=== PATIENT | female | born 1970 | race Caucasian/White ===

== ENCOUNTER 2017-09-02 21:30 | Observation (INO) | payer SELFPAY ==
[~2017-09-02] VITALS: Ht 165.1 cm; Wt 105.2 kg
[2017-09-02 21:50] LABS: BASOPHILS # (AUTO) 0.1 10^3/uL (0.0-0.1); BASOPHILS % (AUTO) 0 % (0-10); EOSINOPHILS # (AUTO) 0.2 10^3/uL (0.0-0.3); EOSINOPHILS % (AUTO) 1 % (0-10); HEMATOCRIT 48 % (35-52); LYMPHOCYTES # (AUTO) 4.9 X 10^3 (1.0-4.0); LYMPHOCYTES % (AUTO) 28 % (12-44); MEAN CORPUSCULAR HEMOGLOBIN 32 PG (25-34); MEAN CORPUSCULAR HGB CONC 35 G/DL (32-36); MEAN CORPUSCULAR VOLUME 89 FL (80-99); MEAN PLATELET VOLUME 10.5 FL (7.4-10.4); MONOCYTES # (AUTO) 1.1 X 10^3 (0.0-1.0); MONOCYTES % (AUTO) 6 % (0-12); NEUTROPHILS # (AUTO) 11.8 X 10^3 (1.8-7.8); NEUTROPHILS % (AUTO) 65 % (42-75); PLATELET COUNT 287 10^3/uL (130-400); RED BLOOD COUNT 5.38 10^6/uL (4.35-5.85)
[2017-09-02] MEDS ORDERED: ASPIRIN 81 MG CHEW (CHILDREN'S ASA) PO ONE (22:00)
[2017-09-02 22:03] LABS: INR 0.9 (0.8-1.4); PROTHROMBIN TIME PATIENT 12.5 SEC (12.2-14.7)
[2017-09-02 22:14] LABS: ALANINE AMINOTRANSFERASE 22 U/L (0-55); ALBUMIN 4.2 GM/DL (3.2-4.5); ALKALINE PHOSPHATASE 107 U/L (40-136); AMYLASE 28 U/L (25-125); BILIRUBIN,TOTAL 0.2 MG/DL (0.1-1.0); BUN/CREATININE RATIO 9; CALCIUM 9.6 MG/DL (8.5-10.1); CARBON DIOXIDE 19 MMOL/L (21-32); CHLORIDE 104 MMOL/L (98-107); CREATINE KINASE 42 U/L (29-168); CREATININE SERUM 0.79 MG/DL (0.60-1.30); GFR ESTIMATED > 60; GLUCOSE 304 MG/DL (70-105); LIPASE 17 U/L (8-78); POTASSIUM 3.9 MMOL/L (3.6-5.0); SODIUM 136 MMOL/L (135-145); TOTAL PROTEIN 7.5 GM/DL (6.4-8.2)
[2017-09-02 22:25] LABS: CREATINE KINASE MB 0.5 NG/ML (<6.6)
[2017-09-02 22:29] LABS: BAND NEUTROPHILS 0 %; BASOPHILS % (MANUAL) 0 %; EOSINOPHILS % (MANUAL) 0 %; LYMPHOCYTES % (MANUAL) 36 %; MONOCYTES % (MANUAL) 5 %; NEUTROPHILS % (MANUAL) 59 %; RBC MORPH NORMAL
[2017-09-02] MEDS ORDERED: IOHEXOL 350 MG/ML 150 ML (OMNIPAQUE 350) VIAL IV ONE (23:30)
[2017-09-02] MEDS ORDERED: NS 250 ML (IVPB) BAG IV ONE (23:30)
[2017-09-03] VITALS (11 sets, daily range): BP systolic 124–177; BP diastolic 70–98
--- NOTE | 2017-09-03 00:51 | ED Chest Pain ---
General Chief Complaint: Chest Pain Stated Complaint: CP Nursing Triage Note: PT TO ED 10 W/ C/O CHEST PAIN ONSET 1529 TODAY WHILE WALKING THROUGH THE "PLANT". PT REPORTS PAIN IS INTERMITTENT BUT RADIATES UP NECK INTO JAW. DOES REPORT HAS BEEN UNDER INCREASED STRESS RECENTLY. NO OTHER C/O VOICED Nursing Sepsis Screen: No Definite Risk Source: patient Exam Limitations: no limitations History of Present Illness Date Seen by Provider: September 02, 2017 Time Seen by Provider: 21:45 Initial Comments PT ARRIVES VIA POV FROM HOME C/O CHEST PAIN OFF AND ON SINCE 1529 TODAY PAIN IS IN CENTER OF CHEST AND RADIATES UP BOTH SIDES OF NECK INTO BOTH JAWS PAIN LASTS A COUPLE OF MINUTES AND GOES AWAY NO PAIN AT THIS TIME FIRST BEGAN WHILE SHE WAS WALKING THROUGH HER NEW WORK PLACE/TAKING A TOUR--IS TO START WORK THERE, BUT HAS ALSO OCCURRED AT REST NOTHING WORSENS PAIN DOESN'T THINK SHE IS SHORT OF BREATH, BUT WHEN PAIN COMES ON, SHE WILL LEAN OVER THE AIR CONDITIONING VENT AND BREATHE ALOT OF COLD AIR AND IT SEEMS TO HELP NO SWEATS + NAUSEA WITH PAIN NO SWELLING IN LEGS/ FEET OR PAIN IN CALVES NO HISTORY OF SIMILAR PT STATES SHE IS SUPPOSED TO BE ON BLOOD PRESSURE MEDICATIONS AND CITALOPRAM, BUT SHE SELF DC'D THEM A COUPLE OF YEARS AGO PT CONTINUES TO SMOKE 1 PPD PT STATES SHE HAS NOT HAD ANY BLOOD WORK DONE SINCE HER LAST CHILD WAS BORN 15 YEARS AGO PT STATES SHE HAS BEEN UNDER ALOT OF STRESS PCP: JEET KILGORE Allergies and Home Medications Allergies Coded Allergies: No Allergy Information Available (Unverified , 09/02/17) Patient Home Medication List Home Medication List Reviewed: Yes Review of Systems Constitutional: no symptoms reported EENTM: See HPI Respiratory: See HPI Cardiovascular: See HPI Gastrointestinal: See HPI Genitourinary: No Symptoms Reported, Other (PERIODS ARE VERY SPORADIC--HAS A MILD PERIOD EVERY FEW MONTHS. S/P BTL) Musculoskeletal: no symptoms reported Skin: no symptoms reported Psychiatric/Neurological: See HPI Endocrine: No Symptoms Reported Hematologic/Lymphatic: No Symptoms Reported Past Hclyjaa-Dfpgkf-Mubyyd Hx Patient Social History Alcohol Use: Rarely Uses Recreational Drug Use: No Smoking Status: Current Everyday Smoker (1 PPD) Type Used: Cigarettes (1 PPD) 2nd Hand Smoke Exposure: Yes Recent Foreign Travel: No Contact w/Someone Who Travel: No Recent Infectious Disease Expo: No Recent Hopitalizations: No Physical Abuse: No Sexual Abuse: No Mistreated: No Fear: No Past Medical History Surgeries: Yes ( X 2; RIGHT LOWER LEG/ANKLE FX-ORIF) Section, Orthopedic, Tubal Ligation Respiratory: No Cardiac: Yes Hypertension Neurological: No : No Genitourinary: No Gastrointestinal: No Musculoskeletal: No Endocrine: Yes (GESTATIONAL DIABETES) HEENT: No Cancer: No Psychosocial: Yes Depression Nursing Suicide Risk Score: 0 Integumentary: No Blood Disorders: No Family Medical History Diabetes (MOM, SIBILINGS ALL DIABETIC) Physical Exam Vital Signs Vital Signs - First Documented 09/02/17 21:34 Temp 97.5 Pulse 93 Resp 20 B/P (MAP) 190/109 (136) Pulse Ox 96 O2 Delivery Room Air Capillary Refill : Less Than 3 Seconds General Appearance: No Apparent Distress, Obese Neck: Full Range of Motion, Normal Inspection, Non Tender, Supple Respiratory: Normal Breath Sounds, No Accessory Muscle Use, No Respiratory Distress Cardiovascular: Regular Rate, Rhythm, No Edema, No JVD, No Murmur, Normal Peripheral Pulses Gastrointestinal: Non Tender, Soft Extremity: Normal Capillary Refill, Normal Inspection, Normal Range of Motion, Non Tender, No Calf Tenderness Neurologic/Psychiatric: Alert, Oriented x3, No Motor/Sensory Deficits, Normal Mood/Affect, agency legal counsel II-XII Norm as Tested Skin: Normal Color, Warm/Dry, Tattoos/Piercings (TATTOOS) Progress/Results/Core Measures Results/Orders Lab Results Laboratory Tests Test 09/02/17 21:41 09/03/17 00:37 Range/Units White Blood Count 18.0 H 4.3-11.0 10^3/uL Red Blood Count 5.38 4.35-5.85 10^6/uL Hemoglobin 17.0 H 11.5-16.0 G/DL Hematocrit 48 35-52 % Mean Corpuscular Volume 89 80-99 FL Mean Corpuscular Hemoglobin 32 25-34 PG Mean Corpuscular Hemoglobin Concent 35 32-36 G/DL Red Cell Distribution Width 13.0 10.0-14.5 % Platelet Count 287 130-400 10^3/uL Mean Platelet Volume 10.5 H 7.4-10.4 FL Neutrophils (%) (Auto) 65 42-75 % Lymphocytes (%) (Auto) 28 12-44 % Monocytes (%) (Auto) 6 0-12 % Eosinophils (%) (Auto) 1 0-10 % Basophils (%) (Auto) 0 0-10 % Neutrophils # (Auto) 11.8 H 1.8-7.8 X 10^3 Lymphocytes # (Auto) 4.9 H 1.0-4.0 X 10^3 Monocytes # (Auto) 1.1 H 0.0-1.0 X 10^3 Eosinophils # (Auto) 0.2 0.0-0.3 10^3/uL Basophils # (Auto) 0.1 0.0-0.1 10^3/uL Neutrophils % (Manual) 59 % Lymphocytes % (Manual) 36 % Monocytes % (Manual) 5 % Eosinophils % (Manual) 0 % Basophils % (Manual) 0 % Band Neutrophils 0 % Blood Morphology Comment NORMAL Prothrombin Time 12.5 12.2-14.7 SEC INR Comment 0.9 0.8-1.4 Activated Partial Thromboplast Time 25 24-35 SEC Sodium Level 136 135-145 MMOL/L Potassium Level 3.9 3.6-5.0 MMOL/L Chloride Level 104 98-107 MMOL/L Carbon Dioxide Level 19 L 21-32 MMOL/L Anion Gap 13 5-14 MMOL/L Blood Urea Nitrogen 7 7-18 MG/DL Creatinine 0.79 0.60-1.30 MG/DL Estimat Glomerular Filtration Rate > 60 BUN/Creatinine Ratio 9 Glucose Level 304 H 70-105 MG/DL Calcium Level 9.6 8.5-10.1 MG/DL Total Bilirubin 0.2 0.1-1.0 MG/DL Aspartate Amino Transf (AST/SGOT) 14 5-34 U/L Alanine Aminotransferase (ALT/SGPT) 22 0-55 U/L Alkaline Phosphatase 107 40-136 U/L Total Creatine Kinase 42 29-168 U/L Creatine Kinase MB 0.5 <6.6 NG/ML Troponin I < 0.30 <0.30 NG/ML B-Type Natriuretic Peptide 10.9 <100.0 PG/ML Total Protein 7.5 6.4-8.2 GM/DL Albumin 4.2 3.2-4.5 GM/DL Amylase Level 28 25-125 U/L Lipase 17 8-78 U/L My Orders Orders - SUSANNA COOMBS DO Amylase (09/02/17 21:45) Cbc With Automated Diff (09/02/17 21:45) Comprehensive Metabolic Panel (09/02/17 21:45) Creatine Kinase (09/02/17 21:45) Creatine Kinase Mb (09/02/17 21:45) Lipase (09/02/17 21:45) Partial Thromboplastin Time (09/02/17 21:45) Protime With Inr (09/02/17 21:45) Troponin I (09/02/17 21:45) Chest 1 View, Ap/Pa Only (09/02/17 21:45) O2 (09/02/17 21:45) Ekg Tracing (09/02/17 21:45) BNP (09/02/17 21:45) Monitor-Rhythm Ecg Trace Only (09/02/17 21:45) Manual Differential (09/02/17 21:41) Aspirin Chewable Tablet (Baby Aspirin Ch (09/02/17 22:00) Ct Angio Chest W (09/02/17 22:41) Iohexol Injection (Omnipaque 350 Mg/Ml 1 (09/02/17 23:30) Ns (Ivpb) (Sodium Chloride 0.9%) (09/02/17 23:30) Hemoglobin A1c (09/03/17 00:29) Medications Given in ED Current Medications Medications Dose Ordered Sig/Mateusz Route Start Time Stop Time Status Last Admin Dose Admin Aspirin 324 mg ONCE ONCE PO 09/02/17 22:00 09/02/17 22:01 DC 09/02/17 22:00 324 MG Iohexol 150 ml ONCE ONCE IV 09/02/17 23:30 09/03/17 00:08 DC 09/02/17 23:26 125 ML Sodium Chloride 80 ml ONCE ONCE IV 09/02/17 23:30 09/03/17 00:08 DC 09/02/17 23:27 80 ML Vital Signs/I&O 09/02/17 09/02/17 21:34 21:34 Temp 97.5 Pulse 93 Resp 20 B/P (MAP) 190/109 (136) Pulse Ox 96 O2 Delivery Room Air Room Air Blood Pressure Mean: 136 Progress Progress Note : Progress Note NO PAIN OR ANY OTHER SYMPTOMS DURING ER STAY Initial ECG Impression Date: September 03, 2017 Initial ECG Impression Time: 21:41 Initial ECG Rate: 86 Initial ECG Rhythm: Normal Sinus Initial ECG Comparisson: No Previous ECG Available Diagnostic Imaging Comments CXR--NO ACUTE PROCESS, PENDING RADIOLOGIST REVIEW CT CHEST ANGIOGRAM--SUBOPTIMAL EXAM BUT NO OBVIOUS P.E. OR OTHER ACUTE PROCESS-- PER [facility] VIA FAX @ [phone] Reviewed: Reviewed by Me Departure Communication (Admissions) [id number]--SPOKE WITH DR. DAWN IN ER, ACCEPTS PT FOR ADMIT. Impression Primary Impression: Chest pain Additional Impression: Hyperglycemia Disposition: ADMITTED INPATIENT Condition: Stable Admissions Decision to Admit Reason: Admit from ER (General) Decision to Admit/Date: September 02, 2017 Time/Decision to Admit Time: 23:50 Departure-Patient Inst. Referrals: NO,LOCAL PHYSICIAN (PCP/Family) Primary Care Physician SUSANNA COOMBS DO September 03, 2017 00:51
[2017-09-03] MEDS ORDERED: NS IV 1000 ML 1,000 ML ONE (01:33)
[2017-09-03] MEDS: NS IV 1000 ML 1,000 ML IV SCH ×3 (01:33→22:00)
[2017-09-03] MEDS ORDERED: morphine INJ 4 MG/ML 1 ML (VIAL/SYRINGE) IV PRN (01:45)
[2017-09-03] MEDS ORDERED: NITROGLYCERIN 0.4 MG SL TABS BTL 25'S SL PRN (01:45)
[2017-09-03] MEDS: inSUlin ASPART (NovoLOG) 1 UNIT/0.01 ML (CHARGE PER UNIT) SC SCH ×3 (05:51→17:42)
[2017-09-03 06:33] LABS: BASOPHILS % (AUTO) 0 % (0-10); EOSINOPHILS # (AUTO) 0.2 10^3/uL (0.0-0.3); EOSINOPHILS % (AUTO) 1 % (0-10); HEMATOCRIT 45 % (35-52); HEMOGLOBIN 15.6 G/DL (11.5-16.0); LYMPHOCYTES # (AUTO) 4.5 X 10^3 (1.0-4.0); LYMPHOCYTES % (AUTO) 33 % (12-44); MEAN CORPUSCULAR HEMOGLOBIN 31 PG (25-34); MEAN CORPUSCULAR HGB CONC 35 G/DL (32-36); MEAN CORPUSCULAR VOLUME 90 FL (80-99); MONOCYTES % (AUTO) 7 % (0-12); NEUTROPHILS # (AUTO) 7.9 X 10^3 (1.8-7.8); NEUTROPHILS % (AUTO) 58 % (42-75); PLATELET COUNT 247 10^3/uL (130-400); RED BLOOD COUNT 4.98 10^6/uL (4.35-5.85); RED CELL DISTRIBUTION WIDTH 12.7 % (10.0-14.5); WHITE BLOOD COUNT 13.5 10^3/uL (4.3-11.0)
[2017-09-03 06:56] LABS: ALANINE AMINOTRANSFERASE 17 U/L (0-55); ALBUMIN 3.7 GM/DL (3.2-4.5); ALKALINE PHOSPHATASE 88 U/L (40-136); BILIRUBIN,TOTAL 0.5 MG/DL (0.1-1.0); BUN/CREATININE RATIO 12; CALCIUM 8.8 MG/DL (8.5-10.1); CARBON DIOXIDE 24 MMOL/L (21-32); CHLORIDE 106 MMOL/L (98-107); CHOLESTEROL 161 MG/DL (< 200); CREATINE KINASE 37 U/L (29-168); GFR ESTIMATED > 60; GLUCOSE 202 MG/DL (70-105); HDL CHOLESTEROL 42 MG/DL (40-60); POTASSIUM 3.6 MMOL/L (3.6-5.0); SODIUM 137 MMOL/L (135-145); TOTAL PROTEIN 6.5 GM/DL (6.4-8.2); TRIGLYCERIDES 139 MG/DL (<150); VLDL CHOLESTEROL 28 MG/DL (5-40)
[2017-09-03 07:03] LABS: MYOGLOBIN SERUM 27.5 NG/ML (10.0-92.0)
--- NOTE | 2017-09-03 07:54 | Diagnostic Imaging Report ---
INDICATION: Chest pain. COMPARISON: No previous study is available for comparison at this time. FINDINGS: Heart size and pulmonary vasculature are within normal limits, and the lungs are clear, bilaterally. IMPRESSION: Unremarkable chest. Dictated by: Dictated on workstation # [id number]
--- NOTE | 2017-09-03 07:56 | Diagnostic Imaging Report ---
PROCEDURE: CT angiography of the chest with contrast. TECHNIQUE: Multiple contiguous axial images were obtained through the chest after uneventful bolus administration of intravenous contrast. Reconstructed CTA MIP acquisitions were also performed. INDICATION: Chest pain There is good opacification of pulmonary arteries. No filling defect is identified to indicate embolism. Lungs are clear. There is no significant pleural or pericardial fluid. No pathologic adenopathy is identified. No acute osseous abnormality is seen. There is low-density throughout the liver indicating steatosis. Impression: No CTA evidence of pulmonary embolism or other acute abnormality within the mediastinum or elsewhere in the chest. There is fatty infiltration of the liver. Dictated by: Dictated on workstation # [id number]
[2017-09-03] MEDS: ASPIRIN E.C. 325 MG (ECOTRIN) TABLET PO SCH (08:54)
--- NOTE | 2017-09-03 11:55 | History & Physical-Hospitalist ---
History of Present Illness HPI/Chief Complaint The patient is a 47-year-old white female who was admitted after presenting at the emergency room early this morning. She presented there complaining of a central and slightly left of center chest pain which radiated up to the jaws. She had never had this before. She was discovered to be very hypertensive at the presentation however this has not continued. She also had elevated blood sugar which is also not previously known. She smokes about one pack of cigarettes per day. She has not had a period in some time. There is no family history of early heart disease. She is pain-free at this time. Date Seen 09/03/17 Time Seen by Provider: 11:52 Attending Physician Joceline English MD PCP No,Local Physician Referring Physician Date of Admission September 02, 2017 at 23:50 Home Medications & Allergies Home Medications Reviewed patient Home Medication Reconciliation performed by pharmacy medication reconciliations results technician and/or nursing. Patients Allergies have been reviewed. Allergies Allergies Coded Allergies No Allergy Information Available (Unverified09/02/17) Past Nucwgvb-Slyntf-Mdjxsx Hx Past Med/Social Hx: Reviewed Nursing Past Med/Soc Hx Patient Social History Marrital Status: Alcohol Use: Denies Use Recreational Drug Use: No Smoking Status: Current Everyday Smoker Type Used: Cigarettes 2nd Hand Smoke Exposure: Yes Physical Abuse Screen: No Sexual Abuse: No Recent Foreign Travel: No Contact w/other who traveled: No Recent Hopitalizations: No Recent Infectious Disease Expo: No Past Medical History Surgeries: Section, Orthopedic, Tubal Ligation Cardiac: Hypertension : No Psychosocial: Anxiety, Depression History of Blood Disorders: Yes (anemia during a ) Adverse Reaction to Blood Zhang: No Family History Arthritis 19 MOTHER Cardiovascular disease 19 FATHER Cataracts Maternal Grandmother Deafness or hearing loss Maternal Grandfather Diabetes mellitus 19 MOTHER G8 SISTER Maternal Grandmother Kidney stone G8 SISTER Diabetes (MOM, SIBILINGS ALL DIABETIC) Review of Systems Constitutional: see HPI EENTM: no symptoms reported Respiratory: no symptoms reported Cardiovascular: see HPI, chest pain Gastrointestinal: no symptoms reported Genitourinary: no symptoms reported Musculoskeletal: no symptoms reported Skin: no symptoms reported Psychiatric/Neurological: No Symptoms Reported Physical Exam Physical Exam Vital Signs Vital Signs - First Documented 09/02/17 21:34 Temp 97.5 Pulse 93 Resp 20 B/P (MAP) 190/109 (136) Pulse Ox 96 O2 Delivery Room Air Capillary Refill : Less Than 3 Seconds General Appearance: No Apparent Distress, WD/WN Eyes: Bilateral Eye Normal Inspection HEENT: Normal ENT Inspection Neck: Normal Inspection Respiratory: Chest Non Tender, Lungs Clear, Normal Breath Sounds, No Accessory Muscle Use, No Respiratory Distress Cardiovascular: Regular Rate, Rhythm, No Edema, No Gallop, No JVD, No Murmur, Normal Peripheral Pulses Gastrointestinal: Normal Bowel Sounds, No Organomegaly, No Pulsatile Mass, Non Tender, Soft Back: Normal Inspection Extremity: Normal Capillary Refill, Normal Inspection, Normal Range of Motion, Non Tender, No Calf Tenderness Neurologic/Psychiatric: Alert, Oriented x3, No Motor/Sensory Deficits, Normal Mood/Affect Skin: Normal Color, Warm/Dry Lymphatic: No Adenopathy Results Results/Procedures Labs Laboratory Tests 09/02/17 21:41 09/03/17 05:30 Patient resulted labs reviewed. Assessment/Plan Admission Diagnosis 1.chest pain suspicious of angina. 2.apparent new diagnosis diabetes. 3.tobaccoism Admission Status: Observation Assessment and Plan Cardiology consultation. Await hemoglobin A1c. Clinical Quality Measures AMI/AHF: ASA po Prior to arrival: No DVT/VTE Risk/Contraindication: Risk Factor Score Per Nursin RFS Level Per Nursing on Admit: 3=High JHONY BARTLETT MD September 03, 2017 11:55
--- NOTE | 2017-09-03 12:43 | Consultation-Cardiology ---
HPI-Cardiology Cardiology Consultation: Date of Consultation 09/03/17 Date of Admission Attending Physician Joceline English MD Admitting Physician No,Local Physician Consulting Physician Virgilio BHANDARI MD HPI: Time Seen by Provider: 12:37 Chief Complaint: Chest pain This is a 47 year old lady who has history of new onset diabetes, obesity, active smoking, hypertension, family history of premature CAD who presents with complaint of substernal chest pain which was radiating up to her jaws. First episode. Moderate intensity. No exacerbating or relieving factors. No chest pain on my history and physical. Father had an [place]. She smokes one pack a day. She denies any other symptoms including shortness of breath, syncope, near- syncope, palpitations. Review of Systems-Cardiology Review of Systems Constitutional: As described under HPI; No As described under HPI, No no symptoms reported, No chills, No fever, No lightheadedness Eyes: No As described under HPI, No no symptoms reported, No blindness, No blurred vision, No contact lenses, No drainage, No decreased acuity, No foreign body sensation, No pain, No vision change Ears/Nose/Throat: No As described under HPI, No no symptoms reported, No chronic hearing loss, No ear discharge, No ear pain, No nasal drainage, No ulcerations Respiratory: No no symptoms reported; As described under HPI; No As described under HPI, No cough, No orthopnea, No shortness of breath, No SOB with excertion Cardiovascular: No no symptoms reported; As described under HPI; No As described under HPI; chest pain; No edema, No irregular heart rate, No lightheadedness, No palpitations Gastrointestinal: No no symptoms reported, No As described under HPI, No abdomen distended, No abdominal pain, No blood streaked bowels, No constipation , No diarrhea, No nausea, No vomiting, No stool coloration changes Genitourinary: No As described under HPI, No burning, No dysuria, No discharge , No frequency, No flank pain, No hematuria, No urgency : Yes : No Musculoskeletal: No no symptoms reported, No As describe under HPI, No back pain, No gout, No joint pain, No joint swelling, No muscle pain, No muscle stiffness, No neck pain, No other Skin: No no symptoms reported, No As described under HPI, No change in color, No change in hair/nails, No dryness, No lesions, No lumps, No rash, No other, No skin related problems, No ulcerations, No rash on exposed areas, No ulcerations on exposed areas Psychiatric/Neurological: No anxiety, No depression, No seizure, No focal weakness, No syncope Hematologic: No bleeding abnormalities KBM-Eexwcl-Utctmv Hx Patient Social History Marrital Status: Alcohol Use: Denies Use Recreational Drug Use: No Smoking Status: Current Everyday Smoker Type Used: Cigarettes 2nd Hand Smoke Exposure: Yes Recent Foreign Travel: No Recent Infectious Disease Expo: No Hospitalization with Isolation: Denies Physical Abuse Screen: No Sexual Abuse: No Past Medical History PMH As described under Assessment. Family Medical History Family History: Arthritis 19 MOTHER Cardiovascular disease 19 FATHER Cataracts Maternal Grandmother Deafness or hearing loss Maternal Grandfather Diabetes mellitus 19 MOTHER G8 SISTER Maternal Grandmother Kidney stone G8 SISTER Allergies and Home Medications Allergies Coded Allergies: No Allergy Information Available (Unverified , 09/02/17) Home Medications No Active Prescriptions or Reported Meds Patient Home Medication List Home Medication List Reviewed: Yes Physical Exam-Cardiology Physical Exam Vital Signs/I&O 09/03/17 09/03/17 09/03/17 09/03/17 00:56 01:00 01:05 01:20 Temp 97.7 Pulse 92 83 85 Resp 16 20 20 B/P (MAP) 166/105 177/89 (118) 167/98 (121) Pulse Ox 96 96 98 O2 Delivery Room Air Room Air Room Air Room Air 09/03/17 09/03/17 09/03/17 09/03/17 01:35 01:50 02:17 02:50 Temp 97.9 Pulse 79 78 76 78 Resp 20 20 18 B/P (MAP) 144/91 (108) 161/90 (113) 131/79 (96) Pulse Ox 96 96 95 O2 Delivery Room Air Room Air Room Air 09/03/17 09/03/17 09/03/17 09/03/17 03:50 04:50 07:00 08:00 Temp 97.0 97.6 98.0 Pulse 88 87 88 90 Resp 18 18 18 B/P (MAP) 137/81 (99) 132/83 (99) 144/71 (95) Pulse Ox 96 95 96 O2 Delivery Room Air Room Air Room Air Capillary Refill : Less Than 3 Seconds Constitutional: appears stated age, AAO x 3; No apparent distress; well- developed, well-nourished HEENT: PERRL; No normal ENT inspection, No TMs normal, No pharynx normal, No scleral icterus (R), No scleral icterus (L), No pale conjunctivae (R), No pale conjunctivae (L), No photophobia, No TM abnormal (R), No TM abnormal (L), No pharyngeal erythema, No tonsillar exudate, No other, No discharge, No EOMI; hearing is well preserved; No hard of hearing; oral hygience is good; No ulceration, No xanthelasmas are seen Neck: No non-tender, No full range of motion, No supple, No normal inspection, No carotid bruit, No limited range of motion, No lymphadenopathy (R), No lymphadenopathy (L), No tender lateral, No tender midline, No thyromegaly, No other; carotid pulses are 2 + bilaterally; No with good upstrokes Respiratory: No accessory muscle use, No respiratory distress, No chest tender , No chest expansion is symmetric; chest is bilaterally symmetric; No lungs clear to percussion; lungs clear to auscultation; No crackles, No rhonchi, No rales, No stridor, No wheezing, No pleural rub, No other Cardiovascular: regular rate-rhythm; No irregularly irregular, No extra beats, No parasternal heave is noted, No JVD, No edema, No bradycardia, No tachycardia , No point of maximal impulse, No cardiac thrills are palpable; S1 and S2; No gallop/S3, No gallop/S4, No diastolic murmur, No systolic murmur, No friction rub, No click, No other Gastrointestinal: No tender, No soft, No round, No distended, No pulsatile mass , No organomegaly, No guarding, No rebound, No tenderness, No hernia, No mass, No audible bowel sounds, No abnormal bowel sounds, No abdominal bruits, No spleenomegaly, No other Rectal: deferred Extremities: No normal range of motion, No non-tender, No normal inspection, No pedal edema, No calf tenderness, No normal capillary refill, No pelvis stable , No calf tenderness, No inflammation, No pedal edema, No slow capillary refill , No swelling, No other, No abrasion, No clubbing, No cyanosis, No ecchymosis, No laceration, No no lower extremity edema bilateral, No significant edema, No tenderness, No wound Neurologic/Psychiatric: alert, oriented x 3, power is 5/5 both on sides Skin: No normal color, No warm/dry, No cyanosis, No cool, No diaphoresis, No damp, No ecchymosis, No jaundice, No mottled, No pallor, No rash, No tattoos/ piercings, No ulcerations, No rash on exposed areas, No ulcerations on exposed areas, No other Data Review Labs Laboratory Tests 09/02/17 21:41: White Blood Count 18.0H, Red Blood Count 5.38, Hemoglobin 17.0H, Hematocrit 48, Mean Corpuscular Volume 89, Mean Corpuscular Hemoglobin 32, Mean Corpuscular Hemoglobin Concent 35, Red Cell Distribution Width 13.0, Platelet Count 287, Mean Platelet Volume 10.5H, Neutrophils (%) (Auto) 65, Lymphocytes (%) (Auto) 28 , Monocytes (%) (Auto) 6, Eosinophils (%) (Auto) 1, Basophils (%) (Auto) 0, Neutrophils # (Auto) 11.8H, Lymphocytes # (Auto) 4.9H, Monocytes # (Auto) 1.1H, Eosinophils # (Auto) 0.2, Basophils # (Auto) 0.1, Neutrophils % (Manual) 59, Lymphocytes % (Manual) 36, Monocytes % (Manual) 5, Eosinophils % (Manual) 0, Basophils % (Manual) 0, Band Neutrophils 0, Blood Morphology Comment NORMAL, Prothrombin Time 12.5, INR Comment 0.9, Activated Partial Thromboplast Time 25, Sodium Level 136, Potassium Level 3.9, Chloride Level 104, Carbon Dioxide Level 19L, Anion Gap 13, Blood Urea Nitrogen 7, Creatinine 0.79, Estimat Glomerular Filtration Rate > 60, BUN/Creatinine Ratio 9, Glucose Level 304H, Calcium Level 9.6, Total Bilirubin 0.2, Aspartate Amino Transf (AST/SGOT) 14, Alanine Aminotransferase (ALT/SGPT) 22, Alkaline Phosphatase 107, Total Creatine Kinase 42, Creatine Kinase MB 0.5, Troponin I < 0.30, B-Type Natriuretic Peptide 10.9, Total Protein 7.5, Albumin 4.2, Amylase Level 28, Lipase 17 5/7/18 00:37: 09/03/17 05:14: Glucometer 209H 09/03/17 05:30: White Blood Count 13.5H, Red Blood Count 4.98, Hemoglobin 15.6, Hematocrit 45, Mean Corpuscular Volume 90, Mean Corpuscular Hemoglobin 31, Mean Corpuscular Hemoglobin Concent 35, Red Cell Distribution Width 12.7, Platelet Count 247, Mean Platelet Volume 11.0H, Neutrophils (%) (Auto) 58, Lymphocytes (%) (Auto) 33 , Monocytes (%) (Auto) 7, Eosinophils (%) (Auto) 1, Basophils (%) (Auto) 0, Neutrophils # (Auto) 7.9H, Lymphocytes # (Auto) 4.5H, Monocytes # (Auto) 1.0, Eosinophils # (Auto) 0.2, Basophils # (Auto) 0.0, Sodium Level 137, Potassium Level 3.6, Chloride Level 106, Carbon Dioxide Level 24, Anion Gap 7, Blood Urea Nitrogen 7, Creatinine 0.60, Estimat Glomerular Filtration Rate > 60, BUN/ Creatinine Ratio 12, Glucose Level 202H, Calcium Level 8.8, Total Bilirubin 0.5 , Aspartate Amino Transf (AST/SGOT) 12, Alanine Aminotransferase (ALT/SGPT) 17, Alkaline Phosphatase 88, Total Creatine Kinase 37, Troponin I < 0.30, Total Protein 6.5, Albumin 3.7, Myoglobin 27.5, Triglycerides Level 139, Cholesterol Level 161, LDL Cholesterol Direct 102, VLDL Cholesterol 28, HDL Cholesterol 42 09/03/17 11:53: Glucometer 204H ECG Impression ECG Initial ECG Rhythm: Normal Sinus Initial ECG Impression: Normal A/P-Cardiology Assessment/Admission Diagnosis Chest pain, New onset diabetes, Hypertension, Hyperlipidemia, Active smoking, Obesity Plan Chest pain, acute coronary syndrome ruled out with serial negative troponin. EKG did not have any ST-T wave abnormalities. Echocardiogram today. I have recommended inpatient pharmacological nuclear stress test due to numerous coronary risk factors. The patient is hesitant. I have let her know that if this chest pain is coronary in origin, she is at risk for developing future coronary events in the near future. She understands and will let us know. If she agrees we will perform it tomorrow. New onset diabetes, waiting HbA1c. Appropriate therapy will be started if HbA1c is elevated. Hypertension, start lisinopril. Hyperlipidemia, if HbA1c is elevated, I will recommend low dose atorvastatin. Active smoking, smoking cessation was strongly recommended. Obesity Thank you for your consultation. Please call me if you have any questions. Leigha Bhandari MD, FACP, FACC, FSCAI, FHRS, CCDS Interventional Cardiology Cardiac Electrophysiology Vascular Medicine and Endovascular Interventions Clinical Quality Measures AMI/AHF: ASA po Prior to arrival: No DVT/VTE Risk/Contraindication: Risk Factor Score Per Nursin RFS Level Per Nursing on Admit: 3=High Virgilio BHANDARI MD September 03, 2017 12:43 pm
[2017-09-03] MEDS ORDERED: lisINopril 40 MG (PRINIVIL) TABLET PO SCH (12:45)
[2017-09-03] MEDS: lisINopril 10 MG (PRINIVIL) TABLET PO SCH (13:18)
[2017-09-04] VITALS (8 sets, daily range): BP systolic 128–197; BP diastolic 57–85
[2017-09-04] MEDS: inSUlin ASPART (NovoLOG) 1 UNIT/0.01 ML (CHARGE PER UNIT) SC SCH ×3 (00:47→13:13)
[2017-09-04] MEDS: NS IV 1000 ML 1,000 ML IV SCH (07:38)
[2017-09-04] MEDS: ASPIRIN E.C. 325 MG (ECOTRIN) TABLET PO SCH (09:45)
[2017-09-04] MEDS: lisINopril 10 MG (PRINIVIL) TABLET PO SCH (11:50)
[2017-09-04] MEDS ORDERED: CATHETER FLUSH 10 ML SYR IV PRN (12:30)
[2017-09-04] MEDS ORDERED: REGADENOSON 0.4 MG/5 ML SYR (LEXISCAN) IV ONE ×2 (13:04→13:45)
--- NOTE | 2017-09-04 14:35 | Cardiology Progress Note ---
Cardiology SOAP Progress Note Subjective: No further chest pain. Objective: I&O/Vital Signs 09/04/17 09/04/17 09/04/17 09/04/17 08:00 12:00 13:00 13:39 Temp 98.4 98.6 Pulse 75 75 64 75 Resp 18 22 18 B/P (MAP) 134/71 (92) 148/74 (98) 143/82 (102) Pulse Ox 96 98 98 O2 Delivery Room Air Room Air Room Air 09/04/17 09/04/17 09/04/17 13:44 15:42 16:57 Temp 98.8 Pulse 101 75 75 Resp 18 18 18 B/P (MAP) 197/82 (120) 174/85 (114) 174/85 Pulse Ox 98 96 96 O2 Delivery Room Air Room Air Room Air 09/04/17 00:00 Intake Total 1800 ml Balance 1800 ml Weight (Pounds): 232 Weight (Ounces): 0.0 Weight (Calculated Kilograms): [id number] Constitutional: appears stated age, AAO x 3; No apparent distress; well- developed, well-nourished Respiratory: No accessory muscle use, No respiratory distress, No chest tender , No chest expansion is symmetric; chest is bilaterally symmetric; No lungs clear to percussion; lungs clear to auscultation; No crackles, No rhonchi, No rales, No stridor, No wheezing, No pleural rub, No other Cardiovascular: regular rate-rhythm; No irregularly irregular, No extra beats, No parasternal heave is noted, No JVD, No edema, No bradycardia, No tachycardia , No point of maximal impulse, No cardiac thrills are palpable; S1 and S2; No gallop/S3, No gallop/S4, No diastolic murmur, No systolic murmur, No friction rub, No click, No other Gastrointestional: No tender, No soft, No round, No distended, No pulsatile mass, No organomegaly, No guarding, No rebound, No tenderness, No hernia, No mass, No audible bowel sounds, No abnormal bowel sounds, No abdominal bruits, No spleenomegaly, No other Extremities: No normal range of motion, No non-tender, No normal inspection, No pedal edema, No calf tenderness, No normal capillary refill, No pelvis stable , No calf tenderness, No inflammation, No pedal edema, No slow capillary refill , No swelling, No other, No abrasion, No clubbing, No cyanosis, No ecchymosis, No laceration, No no lower extremity edema bilateral, No significant edema, No tenderness, No wound Neurologic/Psychiatric: alert, oriented x 3, power is 5/5 both on sides Skin: No normal color, No warm/dry, No cyanosis, No cool, No diaphoresis, No damp, No ecchymosis, No jaundice, No mottled, No pallor, No rash, No tattoos/ piercings, No ulcerations, No rash on exposed areas, No ulcerations on exposed areas, No other Results/Procedures: Labs Laboratory Tests 09/04/17 00:17: Glucometer 143H 09/04/17 05:14: Glucometer 166H 09/04/17 12:20: Glucometer 163H Microbiology 09/03/17 Urine Culture - Preliminary, Resulted A/P: Assessment/Dx: Chest pain, New onset diabetes, Hypertension, Hyperlipidemia, Active smoking, Obesity Plan: Chest pain, acute coronary syndrome ruled out with serial negative troponin. EKG did not have any ST-T wave abnormalities. Echocardiogram showed normal LV function with no wall motion abnormalities. Pharmacological nuclear stress test today. New onset diabetes, elevated HbA1c. Insulin started. Hypertension, start lisinopril. Hyperlipidemia, low dose atorvastatin. Active smoking, smoking cessation was strongly recommended. Obesity Thank you for your consultation. Please call me if you have any questions. Leigha Bhandari MD, FACP, FACC, FSCAI, FHRS, CCDS Interventional Cardiology Cardiac Electrophysiology Vascular Medicine and Endovascular Interventions Clinical Quality Measures AMI/AHF: ASA po Prior to arrival: Virgilio Grant MD September 04, 2017 14:35
--- NOTE | 2017-09-04 15:33 | Progress Note-Hospitalist ---
Progress Note Progress Notes/Assess & Plan Date Seen 09/04/17 Time Seen by Provider: 15:28 Assessment & Plan The patient reports no further chest pain. She is undergone nuclear medicine testing and is reported negative. She will therefore be discharged. She had questions to ask relative to diabetes. Her hemoglobin A1c returned at 9.9. Her blood sugars in the hospital have run in the low 200 range. We also discussed smoking cessation. She reports several family members who have problems with obesity and diabetes and would like to avoid this as much as possible. Physical exam: Lungs are clear to auscultation. CV is regular without murmur. Abdomen is obese. Extremities show no pedal edema. Impression: Chest pain, no evidence of obstructive coronary artery disease. 2.obesity. 3.tobaccoism. 4.diabetes type II new Plan: Discharged today. She sees Oumou Anguiano a nurse practitioner in [place]. She will see her for continuing workup with regard to weight reduction, treatment of diabetes, and smoking cessation. JHONY BARTLETT MD September 04, 2017 15:32
--- NOTE | 2017-09-04 15:36 | Discharge Instructions ---
Discharge Instructions Patient Instructions Patient Instructions: Stop cigarette smoking. Weight reduction diabetic type diet See your provider for consideration of oral diabetic medications. Your hemoglobin A1c was 9.9. A goal would the to reach the low 7 range with dietary and medication Activity & Diet Discharge Diet: ADA Diet Activity as Tolerated: Yes JHONY BARTLETT MD September 04, 2017 15:36
--- NOTE | 2017-09-07 09:34 | Physician Query-Final Dx ---
Final Diagnosis Give Final Diagnosis Please give Final Diagnosis SMITA COLVIN September 07, 2017 09:34
[2017-09-08 15:45] VITALS: BP 143/82
--- NOTE | 2017-09-08 15:45 | Cardiology Stress Test Report ---
Stress Test Report Type of NM Stress Test: Test Type: LEXISCAN 0.4MG/5ML Date of Procedure/Referring: Date of Procedure: September 04, 2017 PCP Joceline English MD Admitting Physician No,Local Physician Indications: Chest pain, diabetes Baseline Heart Rate: 67 Baseline Blood Pressure: Blood Pressure Systolic: 143 Blood Pressure Diastolic: 82 Baseline EKG: Baseline EKG: sinus rhythm Summary: The patient was brought to the stress lab of informed consent was taken. Lexiscan stress test was performed according to the protocol. 0.4 mg of IV Lexiscan was given. Low-grade exercise was performed. Baseline EKG showed sinus rhythm at 67 bpm and blood pressure 143/82 mmHg. Maximum heart rate of 117 bpm and blood pressure of 207/83 mmHg. The patient did not complain of any chest pain, EKG abnormalities or arrhythmias. 10.11 mCi of Myoview were given for rest imaging and 33.0 mCi of Myoview were given for stress imaging. Transient ischemic dilatation score 1.01. Ejection fraction 52 percent. Normal perfusion during rest and stress. Normal wall motion. Conclusion: Normal pharmacological stress test. Normal LV function with no wall motion abnormalities. Normal myocardial perfusion during rest and stress. Virgilio CASEY MD September 08, 2017 15:45
--- NOTE | 2017-09-19 14:31 | Short Stay Summary-Hospitalist ---
Short Stay Diagnosis D/C Date September 04, 2017 at 15:33 Chest pain without evidence of acute myocardial infarction. 2.multiple risk factors for coronary artery disease Clinical Quality Measures AMI/AHF: ASA po Prior to arrival: No DVT/VTE Risk/Contraindication: Risk Factor Score Per Nursin RFS Level Per Nursing on Admit: 3=High JHONY BARTLETT MD September 19, 2017 14:31
== END 2017-09-04 15:33 | disposition home or self-care (01) ==
LOC: ER 21:34 → 4TH 21:35 → UNDOADMOB 23:50 → 4TH 09-04 14:32 → UNDODISOB 09-04 16:50
PROVIDERS: ADMIT Family Medicine; ATTEND Family Medicine
DX: R07.9 Chest pain, unspecified (principal); E66.9 Obesity, unspecified; F17.210 Nicotine dependence, cigarettes, uncomplicated; E11.9 Type 2 diabetes mellitus without complications; I10 Essential (primary) hypertension; E78.5 Hyperlipidemia, unspecified; Z68.38 Body mass index [BMI] 38.0-38.9, adult; Z82.49 Family history of ischemic heart disease and other diseases of the circulatory system
CPT/HCPCS: 36415; 71045; 71275; 78452; 80053; 80061; 82150; 82550; 82553; 82962; 83036; 83690; 83874; 83880; 84484; 85007; 85025; 85027; 85610; 85730; 87088; 93005; 93017; 93041; 93306